=== PATIENT | male | born 1965 | race Caucasian/White ===

== ENCOUNTER → 2017-01-18 | Outpatient (CLI) | payer BC ==
[~2017-01-18] VITALS: Ht 170.2 cm; Wt 90.7 kg
[~2017-01-18] MED LIST: ASPIR-LOW81 MG PO; ASPIRIN325 MG PO; ATARAX,VISTARIL25 MG PO; ATORVASTATIN CA40 MG PO; CLONAZEPAM0.5 MG PO; CLOPIDOGREL75 MG PO; CYANOCOBALAM1000 MCG PO; FISH OIL 1,0001 EAC8 PO; LOPRESSOR25 MG PO; MEN'S MULTI-VI1 EACH PO; NITROSTAT0.4 MG SL; PREDNISONE20 MG PO; VENTOLIN HFA18 GM IH
== END | disposition home or self-care (01) ==
LOC: AMB 07:31
PROC: 0DBB8ZX Excision of Ileum, Via Natural or Artificial Opening Endoscopic, Diagnostic (ICD-10-PCS; principal; 2017-01-18)
DX: Z12.11 Encounter for screening for malignant neoplasm of colon (principal); K52.9 Noninfective gastroenteritis and colitis, unspecified; K63.3 Ulcer of intestine; I25.10 Atherosclerotic heart disease of native coronary artery without angina pectoris; E78.5 Hyperlipidemia, unspecified; E66.3 Overweight; Z95.5 Presence of coronary angioplasty implant and graft; Z87.891 Personal history of nicotine dependence; Z79.82 Long term (current) use of aspirin; Z79.01 Long term (current) use of anticoagulants; Z88.5 Allergy status to narcotic agent
CPT/HCPCS: 88305; 93005; J2250; J3010